=== PATIENT | female | born 1955 | race Caucasian/White ===

== ENCOUNTER 2016-12-23 22:15 | Inpatient (IN) ==
[2016-12-23] MEDS ORDERED: TORADOL ONE (22:30)
[2016-12-23] MEDS ORDERED: ZOFRAN ONE (22:36)
[2016-12-23 22:37] LABS: MANUAL DIFF NEEDED? NO
[2016-12-23] MEDS ORDERED: ZOFRAN IV ONE (22:40)
[2016-12-23] MEDS ORDERED: TORADOL IV ONE (22:40)
[2016-12-23 22:41] LABS: BASO% 0.5 % (0.0-0.8); EOS# 0.37 X1000 (0.0-0.7); EOS% 2.2 % (0.0-10.0); HEMATOCRIT 41.8 % (37.0-47.0); HEMOGLOBIN 13.9 g/dL (12.0-16.0); IMM GRAN# 0.06 X1000 (0.0-0.04); IMM GRAN% 0.4 % (0.0-0.5); LYMPH# 3.54 X1000 (1.2-3.4); LYMPH% 20.7 % (20.5-51.1); MCH 29.6 PG (27-31); MCHC 33.3 g/dL (33-37); MCV 88.9 FL (81-99); MONO# 1.42 X1000 (0.11-0.59); MONO% 8.3 % (1.7-9.3); MPV 9.2 FL (7.4-10.4); NEUT% 67.9 % (42.2-75.2); PLT 572 X1000 (130-400)
[2016-12-23 23:03] LABS: AGAP 18; ALBUMIN 4.2 g/dL (3.5-5.0); ALKALINE PHOSPHATASE 95 U/L (32-104); AMYLASE 55 U/L (20-200); BUN 16 mg/dL (8-22); CALCIUM 9.8 mg/dL (8.8-10.2); CHLORIDE 95 mmol/L (98-107); COSMO 271; GOT 27 U/L (10-30); GPT 12 U/L (10-36); LIPASE 31 U/L (13-60); POTASSIUM 3.8 mmol/L (3.5-5.1); SODIUM 134 mmol/L (136-145); TCO2 21 mmol/L (25-35); TOTAL PROTEIN 7.8 g/dL (6.3-8.3)
[2016-12-24] MEDS ORDERED: ZOFRAN IV PRN (00:22)
[2016-12-24] MEDS ORDERED: NS 1,000 ML IV ONE (00:22)
[2016-12-24] MEDS: DILAUDID IV PRN ×5 (01:45→22:51)
--- NOTE | 2016-12-24 08:03 | Diag Imaging Result Document ---
PROCEDURE NAME: CT ABD/PELVIS W/ IV CONT ONLY - 12/23/2016 CT ABDOMEN AND PELVIS WITH IV CONTRAST ONLY: Exam performed with intravenous contrast only per request of the referring provider. A dose-reduction protocol was used. COMPARISON: No comparison exam. FINDINGS: The visualized lung bases appear clear. There are no substantial abnormalities of the liver, spleen, adrenal glands, or pancreas identified. There are no calcified gallstones seen. There is bilateral renal cortical scarring. There is no hydronephrosis. There are no substantially enlarged lymph nodes. There are atherosclerotic calcifications noted. There is a stent in the right external iliac artery. There are lumbar spine degenerative and postsurgical changes noted. There is dilatation of proximal and mid small bowel loops. There is transition to normal caliber distal small bowel at the pelvis. This is suspicious for small bowel obstruction. There is some mild small bowel wall thickening. There is mild mesenteric edema. There is no pericecal inflammation identified. There is no free air or abscess identified. There is a small amount of free fluid in the pelvis. Images of the pelvis, otherwise, show postsurgical changes of hysterectomy. There are severe degenerative changes of the right hip and there is right hip joint effusion. IMPRESSION: 1. Findings which are compatible with [id number] small bowel obstruction. There is apparent transition from dilated to normal caliber small bowel in the pelvis. 2. Small amount of free fluid in the pelvis. No free air. No abscess. 3. Bilateral renal cortical scarring. 4. Severe degenerative changes of the right hip with right hip joint effusion. A [facility] physician provided preliminary results at 12:09 a.m. on 12/24/2016. [facility]ENTER[facility]
--- NOTE | 2016-12-24 11:12 | HISTORY AND PHYSICAL ---
CHIEF COMPLAINT: Abdominal pain. HISTORY OF PRESENT ILLNESS: A 61-year-old female with a 7-day history of crampy abdominal pain mostly in her lower abdomen that was moderately severe last weekend with associated nausea, vomiting, and diarrhea. Her last bowel movement which was loose was 5 days ago, although she says she has passed gas this evening. Her pain and nausea improved about 5 days ago. She has had some mild occasional crampy pain over the last few days until last night. It became severe again with associated nausea, but no vomiting, and she came to the emergency room. She has had no prior episodes similar to this. It is exacerbated with a lot of walking. No real relieving factors. No fever or chills. PAST MEDICAL HISTORY: Hypothyroidism, hypertension, chronic back pain, Tourette syndrome, chronic anxiety. HOME MEDICATIONS: 1. [place] 10/325 mg p.o. t.i.d. 2. Hydrochlorothiazide 25 mg p.o. daily. 3. Xanax 1 mg p.o. t.i.d. 4. Synthroid 137 mcg p.o. daily. 5. Norvasc 5 mg p.o. daily. 6. Ambien 10 mg p.o. at bedtime PAST SURGICAL HISTORY: Multiple back operations, total abdominal hysterectomy. ALLERGIES: Codeine, morphine, Avelox, Talwin. FAMILY HISTORY: Positive for coronary artery disease. REVIEW OF SYSTEMS: Ten systems reviewed and negative, except as noted above. SOCIAL HISTORY: Negative for tobacco, alcohol, or illicit drug use. PHYSICAL EXAMINATION: VITAL SIGNS: Temperature 98.5 degrees, pulse 71, respirations 16, blood pressure 117/47. Her pulse on presentation last night was 128. GENERAL: She is a well-developed, well-nourished female who looks her stated age. She appears mildly nervous, but nontoxic. HEENT: Normocephalic, atraumatic. Extraocular muscles intact. Pupils equal, round, reactive to light. Sclerae anicteric. Moist mucous membranes. NECK: Supple. No thyromegaly. CV: Regular rate and rhythm. RESPIRATORY: Bilateral equal breath sounds. CV: Regular rate and rhythm. GI: Soft. Nondistended. No organomegaly, mass or hernia appreciated. She has a well-healed Pfannenstiel incision. She is mildly tender all over. No rebound or guarding. EXTREMITIES: No clubbing, cyanosis, or edema. SKIN: Warm and dry. No rash. MUSCULOSKELETAL: Moves all extremities equally and well. LABORATORY: White blood cell count 17,000, hemoglobin 13.9, platelet count 572. Sodium 134, potassium 3.8, chloride 95, CO2 21, BUN 16, creatinine 0.7, glucose 128. Albumin 4.2. Liver function tests normal. Amylase and lipase normal. IMAGING: An abdominal/pelvis CT scan revealed multiple dilated loops of proximal small bowel. There appears to be a transition point in the pelvis. No free air or free fluid or appendicitis, cholecystitis or diverticulitis. ASSESSMENT/PLAN: A 61-year-old female with small bowel obstruction. This is likely due to adhesions from her hysterectomy. Overall she does not appear to be in acute distress and she does not have an acute abdomen. We will get a small bowel follow-through x-ray series today and make further recommendations pending these results. She is on nothing by mouth for right now. cc: Fred Chou MD
--- NOTE | 2016-12-24 11:28 | Diag Imaging Result Document ---
PROCEDURE NAME: SMALL BOWEL SERIES ONLY - 12/24/2016 SMALL-BOWEL SERIES: FINDINGS: There is relatively rapid small bowel transit to the colon. The leading edge of the barium column reaches the colon by the 60-minute image. The proximal and mid small bowel are distended up to a maximum of 3.5 cm diameter. There is mucosal thickening involving jejunum in the left abdomen which suggest enteritis. The distal small bowel is not dilated. The transition from distended to nondistended small bowel appears to occur at the pelvis, but a discrete obstructing lesion is not apparent. There is no other discrete lesion identified. IMPRESSION: Findings which may relate to enteritis and/or partial [id number] small bowel obstruction. While the transition from distended to nondistended small bowel appears to be located at the pelvis, there is no discrete obstructing lesion identified.
[2016-12-24] MEDS: NS 1,000 ML IV SCH ×3 (12:21→22:51)
[2016-12-24] MEDS: SYNTHROID PO SCH (12:24)
[2016-12-24] MEDS: NORVASC PO SCH (12:24)
[2016-12-24] MEDS: XANAX PO SCH ×3 (12:25→17:00)
[2016-12-24 14:56] LABS: URINE SOURCE CLEAN CATCH
[2016-12-24 15:02] LABS: BILIRUBIN URINE NEGATIVE (NEGATIVE); BLOOD URINE SMALL (NEGATIVE); COLOR YELLOW; GLUCOSE URINE NEGATIVE (NEGATIVE); LEUKOCYTES URINE MODERATE (NEGATIVE); NITRITE URINE POSITIVE (NEGATIVE); PROTEIN URINE TRACE mg/dL (NEGATIVE); SP GRAVITY URINE 1.041; TURBIDITY URINE HAZY (CLEAR); UROBILINOGEN URINE NORMAL (NORMAL)
[2016-12-24 15:08] LABS: UR EPITHELIAL CELLS >10 /HPF (<10); URINE BACTERIA 4+ /HPF; URINE CULTURE NEEDED? YES; URINE MICRO REVIEW NEEDED? YES
--- NOTE | 2016-12-24 15:20 | PROGRESS NOTE ---
DATE: 12/24/2016 SUBJECTIVE: The patient has some crampy abdominal pain today but not severe. No significant nausea. She has passed some liquid stool or contrast but no solid stool today. OBJECTIVE: Vital signs: She is afebrile. Vital signs are stable. General: She is alert and oriented x4. No acute distress. Gastrointestinal: Soft, nondistended. Minimally tender. No hernias appreciated. IMAGING: Her small bowel followthrough series shows fairly rapid passage of contrast into the colon. However there is a change in caliber along the distal small bowel in the pelvis. A tight transition point is not seen. ASSESSMENT/PLAN: A 61-year-old female with partial small bowel obstruction. The etiology at this point is unclear. In any case, she appears to be improving. I am going to start her on a clear liquid diet and we can advance her as tolerated. I think if she continues to improve and tolerates liquids with good bowel function tomorrow she could go home. We discussed the unclear etiology of this and if she has any recurrent symptoms of obstruction she is to follow up with us urgently and she may ultimately require exploration, but at this time I think we can proceed with advancing her diet. cc: Fred Chou MD
[2016-12-24 15:35] LABS: URINE CASTS NONE SEEN
[2016-12-25] MEDS ORDERED: ZOSYN 3.375 GM/NS 3.375 GM/50 ML IVPB IV SCH (08:15)
[2016-12-25] MEDS: NORVASC PO SCH (10:11)
[2016-12-25] MEDS: XANAX PO SCH ×3 (10:11→22:26)
[2016-12-25] MEDS: NS 1,000 ML IV SCH ×2 (10:11→16:55)
[2016-12-25] MEDS: SYNTHROID PO SCH (10:11)
[2016-12-25] MEDS: LOVENOX SUBQ SCH (10:14)
[2016-12-25 10:30] LABS: MANUAL DIFF NEEDED? NO
--- NOTE | 2016-12-25 10:41 | PROGRESS NOTE ---
DATE: 12/25/2016 SUBJECTIVE: She feels okay. She is beginning to have some bowel function. No nausea or vomiting. She is tolerating clear liquids. No real complaints. OBJECTIVE: Vital Signs: No fevers. Temperature is 98.1 degrees, pulse 66, blood pressure 104/53, oxygen saturation 98% on room air. General: She is alert, in no acute distress. Cardiovascular: Normal rate, regular rhythm. Abdomen: Soft, only mildly distended, nontender. DIAGNOSTIC DATA: I reviewed her labs. Nothing new. She does appear to have a urinary tract infection on her original urinalysis. In review of her small bowel follow through from yesterday, it shows contrast passage into the colon, but some relatively dilated proximal small bowel and decompressed distal. ASSESSMENT AND PLAN: This is a 61-year-old female with a bowel obstruction. She has had several abdominal operations. I started her on Zosyn for her urinary tract infection. I think we can advance her diet. She has had return of bowel function, and her small bowel follow through overall looked okay. We will monitor her today, keep her on some fluids, and I suspect that if she tolerates the diet, she will be ready to go home. cc: Kaitlynn Mcdonald MD
[2016-12-25 11:00] LABS: AGAP 10; BUN 5 mg/dL (8-22); CALCIUM 8.3 mg/dL (8.8-10.2); CHLORIDE 108 mmol/L (98-107); COSMO 282; MAGNESIUM 1.6 mg/dL (1.5-2.7); POTASSIUM 3.3 mmol/L (3.5-5.1); SODIUM 142 mmol/L (136-145); TCO2 24 mmol/L (25-35)
[2016-12-25 11:31] LABS: BASO% 1.5 % (0.0-0.8); EOS# 0.46 X1000 (0.0-0.7); EOS% 8.4 % (0.0-10.0); HEMATOCRIT 32.2 % (37.0-47.0); HEMOGLOBIN 10.6 g/dL (12.0-16.0); LYMPH# 1.48 X1000 (1.2-3.4); LYMPH% 27.1 % (20.5-51.1); MCH 30.4 PG (27-31); MCHC 32.9 g/dL (33-37); MCV 92.3 FL (81-99); MONO# 0.37 X1000 (0.11-0.59); MONO% 6.8 % (1.7-9.3); MPV 8.7 FL (7.4-10.4); NEUT% 56.2 % (42.2-75.2); PLT 364 X1000 (130-400); RBC 3.49 XMIL (4.2-5.4)
--- NOTE | 2016-12-25 13:23 | Diag Imaging Result Document ---
PROCEDURE NAME: ABDOMEN FLAT/UPRIGHT - 12/25/2016 FLAT AND UPRIGHT ABDOMEN, 2 VIEWS: FINDINGS: No free air beneath the diaphragm. There has been extensive surgery to the lower lumbar spine. Contrast is found throughout the colon. The bowel loops are not dilated. No organomegaly. There is a vascular stent in the right pelvis. IMPRESSION: No definite bowel obstruction.
[2016-12-25] MEDS ORDERED: MYLICON DROPS PO PRN (18:40)
[2016-12-25] MEDS: AUGMENTIN PO SCH (22:26)
[2016-12-26] MEDS: NS 1,000 ML IV SCH ×3 (02:26→14:20)
[2016-12-26] MEDS ORDERED: ZOFRAN ODT PO PRN (03:52)
[2016-12-26] MEDS: SYNTHROID PO SCH (09:29)
[2016-12-26] MEDS: XANAX PO SCH ×3 (09:30→17:46)
[2016-12-26] MEDS: AUGMENTIN PO SCH (09:30)
[2016-12-26] MEDS: NORVASC PO SCH (09:30)
[2016-12-26] MEDS: LOVENOX SUBQ SCH (09:30)
[2016-12-26] MEDS ORDERED: TYLENOL PO PRN (09:42)
--- NOTE | 2016-12-26 14:59 | PROGRESS NOTE ---
DATE: 12/26/2016 SUBJECTIVE: Doing well. She had return of bowel function several bowel movements yesterday, some crampy pains with this but this is resolved this morning. OBJECTIVE: Vital signs: Temperature is 100.1 degrees this morning, pulse 91, blood pressure 102/36, oxygen saturation 97% on room air. Abdomen: Soft, nontender, nondistended. Integument: Warm, dry. Neuro: She is alert and oriented, I do not see any scleral icterus. DATA: White count 5 yesterday, hematocrit 32, creatinine 0.6. ASSESSMENT AND PLAN: 61-year-old female with bowel obstruction versus ileus. She also has urinary tract infection that is being treated with Augmentin currently. I think most of her pain yesterday was the resolution of her bowel obstruction and she did have some colicky pain but this resolved this morning. She is also having some diarrhea and I suspect this is all just related to return of function but will monitor her today and I think she is nearing ready for discharge soon. cc: Kaitlynn Mcdonald MD
[2016-12-27] MEDS: NS 1,000 ML IV SCH ×3 (00:01→14:56)
[2016-12-27] MEDS: XANAX PO SCH ×3 (00:03→15:04)
[2016-12-27] MEDS: AUGMENTIN PO SCH ×2 (00:04→08:50)
[2016-12-27] MEDS: SYNTHROID PO SCH (08:50)
[2016-12-27] MEDS: NORVASC PO SCH (08:51)
[2016-12-27] MEDS: LOVENOX SUBQ SCH (08:51)
[2016-12-27] MEDS ORDERED: SEPTRA DS PO SCH (15:02)
[2016-12-27 16:23] VITALS: BP 97/46
--- NOTE | 2016-12-27 18:00 | PROGRESS NOTE ---
DATE: 12/27/2016 SUBJECTIVE: The patient feels much better. She has minimal to no abdominal pain. No nausea or vomiting and she is stooling. She wants to go home. OBJECTIVE: Vital signs: She is afebrile. Vital signs are stable. General: She is alert and oriented x4. No acute distress. CARDIOVASCULAR: Regular rate and rhythm. GI: Soft, nontender, nondistended. Good bowel sounds. ASSESSMENT AND PLAN: A 61-year-old female with partial small bowel obstruction which has resolved. She also had a urinary tract infection present on admission. She has not been taking the Augmentin that was originally ordered for her due to the side effects of nausea and vomiting a few days ago. I will switch her to Bactrim for 3 days to finish out treatment for a urinary tract infection. Otherwise, her symptoms of the obstruction of resolved. We discussed extensively what bowel obstruction symptoms are and should she have recurrent problems, she knows to return to the emergency room urgently and I would plan operative exploration for presumed adhesive disease causing this recurrent obstruction and also would be able to rule out any other pathology such as a mass. cc: Fred Chou MD
--- NOTE | 2017-01-12 12:40 | DISCHARGE SUMMARY ---
ADMISSION DATE: 12/24/2016 DISCHARGE DATE: 12/27/2016 ADMITTING PHYSICIAN: Fred Chou MD ADMITTING DIAGNOSES: 1. Small-bowel obstruction. 2. Chronic back pain. 3. Chronic anxiety. 4. Tourette syndrome. 5. Hypertension. 6. History of hypertension. 7. History of hypothyroidism. DISCHARGE DIAGNOSES: 1. Small-bowel obstruction. 2. Chronic back pain. 3. Chronic anxiety. 4. Tourette syndrome. 5. Hypertension. 6. History of hypertension. 7. History of hypothyroidism. PROCEDURES: None. BRIEF HISTORY: This is a 61-year-old female, who presented to the emergency room with a week long history of abdominal pain with nausea, vomiting, and diarrhea. She did not present with an acute abdomen and conservative management was begun. She was admitted and kept nothing per oral. Underwent serial abdominal exams as well as imaging and laboratory evaluation. The day after admission she was starting to have some stool and flatus and was no longer nauseated or vomiting. She had been started on clear liquids and was tolerating this. Her imaging continued to show some dilated proximal small bowel but contrast did pass through into the colon. She was also on Zosyn for urinary tract infection that was present on admission. Over the next couple of days she was feeling a lot better. Her abdominal pain decreased to a minimal amount. She was tolerating a soft diet. Her abdomen was benign on exam. She had been changed from Zosyn to initially Augmentin for urinary tract infection. However this caused some nausea and vomiting, initially. She was then changed to Bactrim at discharge. DISPOSITION: On 12/27/2016 she was ready to be discharged as her symptoms had resolved. DISCHARGE INSTRUCTIONS: We went over the signs and symptoms of recurrent obstructive disease and she was cautioned to return to the emergency room urgently for any severe symptoms or to call my office or her primary care physician's office if the symptoms are not severe but recurrent in any case. DISCHARGE MEDICATIONS: Bactrim DS 1 p.o. twice daily for 3 more days. She will resume her home [place], hydrochlorothiazide, Xanax, Synthroid, Norvasc and Ambien. cc: Fred Chou MD
--- NOTE | 2017-01-15 05:12 | PROVIDER DOCUMENTATION ---
This chart was entered by Jessica Lamb Scribe, acting as scribe for Wyatt Garcia DO. HPI-Abdominal Pain/GI Problem - General Chief Complaint: Abdominal Pain Stated Complaint: ABD PAIN Time Seen by Provider: 12/23/16 22:32 Source: patient Allergies/Adverse Reactions: Patient Allergies Allergy/AdvReac Type Severity Reaction Status Date / Time codeine Allergy NAUSEA Verified 12/31/16 13:03 morphine Allergy ANAPHYLAXIS Verified 12/31/16 13:03 moxifloxacin HCl * Allergy SWELLING Verified 12/31/16 13:03 [From Avelox] pentazocine lactate * Allergy NAUSEA/VOMI Verified 12/31/16 13:03 [From Talwin] TING Home Medications: Home Medication List Medication Instructions Recorded Confirmed Last Taken Type Alprazolam [Xanax] 1 mg PO TID 08/16/15 12/31/16 12/31/16 History Hydrochlorothiazide 25 mg PO DAILY 08/16/15 12/31/16 08/15/15 20:00 History Hydrocodone/Acetaminophen [[place] 10 mg PO TID 08/16/15 12/31/16 12/28/16 08:00 History 10-325 Tablet] Levothyroxine [Synthroid] 137 mcg PO DAILY 08/16/15 12/31/16 08/15/15 20:00 History Zolpidem [Ambien] 10 mg PO QHS 03/12/16 12/31/16 Unknown History Clopidogrel Bisulfate [Plavix] 75 mg PO DAILY 12/28/16 12/31/16 12/30/16 History Losartan [Cozaar] 50 mg PO DAILY 12/28/16 12/31/16 Unknown History Metoprolol [Lopressor] 25 mg PO DAILY 12/28/16 12/31/16 12/28/16 08:00 History Promethazine [Phenergan] 25 mg PO Q6H PRN PRN #20 tablet 12/28/16 12/31/16 Unknown Rx Hydrocodone/APAP 7.5 mg/325 mg 1 each PO Q8H PRN PRN #10 tablet 12/31/16 Unknown Rx [[place]-7.5] Ondansetron [Zofran Odt] 4 mg PO TID PRN #10 tab.rapdis 12/31/16 Unknown Rx Zolpidem Tartrate [Zolpidem 10 mg PO QHS 12/31/16 12/31/16 12/30/16 History Tartrate] - History of Present Illness-ABD Nature of Presenting Problems: 61 Y/O F presents to ED with ABD pain. Pt states that after eating enchiladas, had severe abdomen pain this evening and has been getting worse. has been hurting on and off 1 week. Abdominal Pain Onset Location: reports: periumbilical, suprapubic Pain Radiation: reports: no radiation Quality of Pain: reports: cramping Severity in ED: reports: severe Onset/Duration: reports: this evening Timing: reports: still present Associated Symptoms: reports: nausea. denies: fever/chills, shortness of breath , vomiting Last BM: 24 hours ago Review of Systems - Adult - REVIEW OF SYSTEMS - ADULT Constitutional: denies: chills, fever Eyes: reports: no symptoms reported Ears, Nose, Mouth & Throat: reports: no symptoms reported Cardiovascular: reports: no symptoms reported Respiratory: denies: cough, shortness of breath Gastrointestinal: reports: abdominal pain, nausea. denies: diarrhea, vomiting Genitourinary: reports: no symptoms reported Musculoskeletal: reports: no symptoms reported Integumentary: reports: no symptoms reported Neurological: reports: no symptoms reported Psychiatric: reports: no symptoms reported Endocrine: reports: no symptoms reported Hematologic/Lymphatic: reports: no symptoms reported Allergic/Immunologic: reports: no symptoms reported All Other Systems: Reviewed and Negative Past History - Adult - PAST MEDICAL HISTORY-ADULT Review of Records: reports: Old Records Reviewed, Nursing Assessment Review, Medications Reviewed, Social history reviewed & non-contributory. Major Childhood Illnesses: reports: denies history Cardiovascular: reports: denies history Respiratory: reports: denies history Gastrointestinal: reports: denies history Obstetrical/Gynecological: reports: denies history Genitourinary: reports: denies history Musculoskeletal: reports: denies history Neurological: reports: denies history Endocrine/Immune: reports: denies history Other Conditions: reports: denies history - PRIOR SURGERIES/PROCEDURES Surgical/Procedure History: reports: hysterectomy, back/neck (Back), other (Knee ; Carpal tunnel) - PRIOR HOSPITALIZATIONS Prior Hospitalizations: reports: none - IMMUNIZATION STATUS Childhood Immunizations: See Nurse Assessment Flu Vaccine: See Nurse Assessment - FAMILY HISTORY Family History: reviewed, not pertinent - SOCIAL HISTORY Smoking: quit greater than 1 year Living Situation: family Physical Exam-General - CONSTITUTIONAL General Appearance: alert, mild distress - EYES Eyes: PERRL/EOMI, pink conjunctivae - HEAD, EARS, NOSE, MOUTH & THROAT HENMT: normocephalic/atraumatic, moist mucous membranes, normal ENT inspection, TMs normal, pharynx normal - NECK Neck: non-tender, full range of motion, supple, normal inspection - RESPIRATORY Respiratory: chest non-tender, lungs clear, normal breath sounds - CARDIOVASCULAR Cardiovascular: normal peripheral pulses, regular rate, rhythm - GASTROINTESTINAL (ABDOMEN) Abdominal Exam: distended (mild), tenderness - LYMPHATIC Lymphatic: no adenopathy - MUSCULOSKELETAL Back Exam: normal inspection, no CVA tenderness, no vertebral tenderness Extremity: normal range of motion - SKIN Integumentary: normal color, normal turgor - NEUROLOGIC Neurologic: tooth inspector II-XII nml as tested - PSYCHIATRIC Psych/Mental Status: normal mood/affect, normal thought content, normal thought process, oriented x 3 Progress - PLAN OF CARE/RESULTS Progress/Plan/Lab Results: Vital Signs - 8 hr 12/23/16 22:23 Temperature 97.9 F Pulse Rate 128 H Respiratory Rate 20 Blood Pressure 152/92 O2 Sat by Pulse Oximetry 95 Laboratory Results - last 24 hr 12/23/16 12/23/16 22:33 22:33 WBC 17.12 H RBC 4.70 Hgb 13.9 Hct 41.8 MCV 88.9 MCH 29.6 MCHC 33.3 RDW Std Deviation 14.0 Plt Count 572 H MPV 9.2 Immature Gran % (Auto) 0.4 Neut % (Auto) 67.9 Lymph % (Auto) 20.7 [place] % (Auto) 8.3 Eos % (Auto) 2.2 Baso % (Auto) 0.5 Immature Gran # (Auto) 0.06 H Neut # (Auto) 11.65 H Lymph # (Auto) 3.54 H [place] # (Auto) 1.42 H Eos # (Auto) 0.37 Baso # (Auto) 0.08 Sodium 134 L Potassium 3.8 Chloride 95 L Carbon Dioxide 21 L Anion Gap 18 BUN 16 Creatinine 0.7 Estimated GFR/1.73 m2 > 60 BUN/Creatinine Ratio 23 Glucose 128 H Calculated Osmolality 271 Calcium 9.8 Total Bilirubin 0.30 AST 27 ALT 12 Alkaline Phosphatase 95 Total Protein 7.8 Albumin 4.2 Globulin 4.0 Albumin/Globulin Ratio 1.0 Amylase 55 Lipase 31 Orders Category Date Time Status Saline Loc DIRECTED Care 12/23/16 22:31 Active NPO Diet 12/23/16 22:[address] ABD/PELVIS W/ IV CONT ONLY [CT] Stat Exams 12/23/16 22:32 Taken AMYLASE [CHEM] Stat Lab 12/23/16 22:33 Completed CBC WITH ELECTRONIC DIFF [HEME] Stat Lab 12/23/16 22:33 Completed COMPREHENSIVE METABOLIC PANEL [CHEM] Stat Lab 12/23/16 22:33 Completed LIPASE [CHEM] Stat Lab 12/23/16 22:[address] W/POSS RFLX CULT [URINALYSIS] Stat Lab 12/23/16 22:31 Uncollected Ketorolac [Toradol] Med 12/23/16 22:30 Discontinued 30 mg .ROUTE .STK-MED ONE Ketorolac [Toradol] Med 12/23/16 22:40 Discontinued 30 mg IV NOW ONE Ondansetron [Zofran] Med 12/23/16 22:36 Discontinued 4 mg .ROUTE .STK-MED ONE Ondansetron [Zofran] Med 12/23/16 22:40 Discontinued 4 mg IV NOW ONE Result Diagrams: 12/25/16 10:25 12/25/16 10:25 - CONSULTS/PCP/HOSPITALIST Notification #1 *Consult/PCP/Hospitalist*: Dr. Choi Time Discussed: 00:16 Reason/Comments: Plan of Care Consult Disposition: Admit (Admit to self, at [facility]) Departure - Departure Time of Disposition Decision: 00:23 DIAGNOSIS: Small bowel obstruction Disposition: ADMITTED INPATIENT 09 Certified Medical Emergency: Emergent Condition: Stable - Critical Care Note This patient required my direct & personal management of CC.: No This chart was documented by the indicated scribe, (Jessica Lamb Scribe) and accurately reflects the services I performed and decisions made by me, Wyatt Garcia DO, as attested by the provider's signature.
== END 2016-12-27 17:47 | disposition home or self-care (01) ==
LOC: P.ED 22:15 → 4N 12-24 00:57
PROVIDERS: ADMIT Emergency Medicine; ATTEND Surgery